=== PATIENT | female | born 1965 | race Asian ===

== ENCOUNTER → 2017-08-15 | Outpatient (CLI) | payer OTHER | LOC: BRMIMAGING 10:03 | PROVIDERS: ATTEND Advanced Practice Midwife | DX: N63.23 Unspecified lump in the left breast, lower outer quadrant (principal); N64.4 Mastodynia ==

== ENCOUNTER → 2017-08-27 | Outpatient (CLI) | payer OTHER | LOC: FIMAGING 08:18 | PROVIDERS: ATTEND Surgery | DX: Z01.818 Encounter for other preprocedural examination (principal); C50.912 Malignant neoplasm of unspecified site of left female breast | CPT/HCPCS: A9520 ==

== ENCOUNTER → 2018-04-10 | Outpatient (CLI) | payer OTHER | END | disposition home or self-care (01) | LOC: FIMAGING 12:48 | PROVIDERS: ATTEND Surgery | DX: C50.312 Malignant neoplasm of lower-inner quadrant of left female breast (principal); Z98.890 Other specified postprocedural states; Z92.3 Personal history of irradiation ==